=== PATIENT | female | born 1940 | race African-American/Black ===

== ENCOUNTER 2017-05-07 14:37 | Outpatient (RCR) | payer OTHER ==
[~2017-05-07 14:37] MED LIST: ACETAMINOPHEN-1 EAC1 PO; ASPIR 8181 MG ORAL; ASPIRIN81 M1 PO; CHLORTHALIDONE25 MG PO; CLONIDINE 0.2M0.2 MG PO; CLONIDINE0.1 MG PO; NORVASC5 MG PO; OMEPRAZOLE20 M1 PO; PANTOPRAZOLE SO40 MG ORAL; POTASSIUM CHLO20 ME1 PO; PROAIR HFA8.5 GM INH; RESTASIS1 EACH OP; SPIRONOLACTONE25 MG PO
== END 2017-05-11 | disposition home or self-care (01) ==
LOC: PTY 14:37 → MERGE 14:37
DX: R51 Headache (principal)

== ENCOUNTER 2017-05-28 10:07 | Outpatient (RCR) | payer OTHER | END 2017-06-11 | disposition home or self-care (01) | LOC: MERGE 10:07 → PTY 10:07 | DX: R51 Headache (principal); M54.2 Cervicalgia | CPT/HCPCS: 97110; G0283 ==

== ENCOUNTER 2017-07-02 14:00 | Outpatient (RCR) | payer OTHER | END 2017-07-11 | disposition home or self-care (01) | LOC: MERGE 14:00 → PTY 14:00 | DX: R51 Headache (principal); M54.2 Cervicalgia | CPT/HCPCS: 97110; 97140; G0283 ==

== ENCOUNTER 2017-07-16 09:09 | Outpatient (RCR) | payer OTHER | END 2017-08-11 | disposition home or self-care (01) | LOC: MERGE 09:09 → PTY 09:09 | DX: R51 Headache (principal); M54.2 Cervicalgia | CPT/HCPCS: 97110; 97140; G0283 ==

== ENCOUNTER 2017-08-07 10:00 | Outpatient (RCR) | payer OTHER | END 2017-08-11 | disposition home or self-care (01) | LOC: PTY 10:00 → MERGE 10:00 | DX: M20.21 Hallux rigidus, right foot (principal); M25.571 Pain in right ankle and joints of right foot; R51 Headache | CPT/HCPCS: 97110; 97140; 97161; G0283 ==